=== PATIENT | male | born 1985 | race Caucasian/White ===

== ENCOUNTER → 2023-10-13 | Outpatient (CLI) | payer OTHER | LOC: M LAB 08:43 | PROVIDERS: ATTEND Nurse Practitioner Acute Care | DX: R19.7 Diarrhea, unspecified (principal); R10.30 Lower abdominal pain, unspecified ==

== ENCOUNTER → 2023-10-30 | Outpatient (CLI) | payer OTHER ==
[~2023-10-30] MED LIST: GASTROGRAFIN SOLUTION 30ML As Ordered ONE; ISOVUE-370 76% 100ML VIAL As Ordered ONE
== END ==
LOC: M RAD 12:40
PROVIDERS: ATTEND Nurse Practitioner Family
DX: R10.31 Right lower quadrant pain (principal)
CPT/HCPCS: 74177; Q9963; Q9967

== ENCOUNTER 2023-11-17 10:12 | Day surgery (SDC) | payer OTHER ==
[~2023-11-17] VITALS: Ht 165.1 cm; Wt 65.0 kg
[2023-11-17] MEDS: NS 1,000 ML IV ONE (11:44)
[2023-11-17 12:59] VITALS: TEMP 98.4
[2023-11-17] MEDS ORDERED: propofoL 500 MG/50 ML VIAL As Ordered ONE (13:13)
[2023-11-17 13:19] VITALS: BP 101/69; O2SAT 100
== END 2023-11-17 13:26 | disposition home or self-care (01) ==
LOC: M OPP 10:12 → EDUNIT# 11:05 → M OPP 13:26
PROVIDERS: ATTEND Internal Medicine Gastroenterology
DX: D12.6 Benign neoplasm of colon, unspecified (principal); K64.8 Other hemorrhoids; K64.4 Residual hemorrhoidal skin tags; R19.7 Diarrhea, unspecified; Z79.1 Long term (current) use of non-steroidal anti-inflammatories (NSAID)

== ENCOUNTER → 2024-01-26 | Outpatient (CLI) | payer OTHER | LOC: M RAD 07:51 | PROVIDERS: ATTEND Nurse Practitioner Family | DX: R19.7 Diarrhea, unspecified (principal) | CPT/HCPCS: 78227; A9537 ==

== ENCOUNTER → 2024-03-14 | Outpatient (CLI) | payer OTHER | LOC: M LRY 13:13 | PROVIDERS: ATTEND Nurse Practitioner Family | DX: R14.0 Abdominal distension (gaseous) (principal) ==

== ENCOUNTER → 2024-04-19 | Outpatient (REF) | payer OTHER | LOC: M LAB REF 08:55 | PROVIDERS: ATTEND Nurse Practitioner Family | DX: R19.7 Diarrhea, unspecified (principal); A04.0 Enteropathogenic Escherichia coli infection ==

== ENCOUNTER → 2025-01-08 | Outpatient (CLI) | payer OTHER | LOC: M RAD 08:57 | PROVIDERS: ATTEND Physician Assistant Medical | DX: R19.7 Diarrhea, unspecified (principal) ==

== ENCOUNTER 2025-05-19 09:32 | Day surgery (SDC) | payer OTHER ==
[~2025-05-19] VITALS: Ht 165.1 cm; Wt 65.7 kg
[~2025-05-19 09:32] MED LIST changes: +FAMO1TAB11 PO; -GASTROGRAFIN SOLUTION 30ML As Ordered ONE; +HYOS0.3723 PO; -ISOVUE-370 76% 100ML VIAL As Ordered ONE
[2025-05-19] MEDS ORDERED: LIDOCAINE 2% 100 MG/5 ML SDV (FOR ANES.) As Ordered ONE (10:03)
[2025-05-19] MEDS ORDERED: ONDANSETRON 4MG 2ML VIAL As Ordered ONE (10:19)
[2025-05-19 10:30] VITALS: TEMP 99
[2025-05-19 10:49] VITALS: BP 126/83; O2SAT 100
== END 2025-05-19 11:06 | disposition home or self-care (01) ==
LOC: M OPP 09:32
PROVIDERS: ATTEND Internal Medicine Gastroenterology
DX: K31.89 Other diseases of stomach and duodenum (principal); R10.13 Epigastric pain; Z91.030 Bee allergy status; Z79.899 Other long term (current) drug therapy; F17.290 Nicotine dependence, other tobacco product, uncomplicated
CPT/HCPCS: 43239; 88305; J2405; J3010